=== PATIENT | female | born 1975 | race American Indian/Alaskan Native ===

== ENCOUNTER 2019-01-06 19:52 | Emergency (ER) | payer OTHER ==
[2019-01-06] MEDS ORDERED: ASPIRIN 325 MG TAB PO ONE (20:00)
--- NOTE | 2019-01-06 20:01 | Event Note ---
ED Screening Note Date of service: 01/06/19 Time: 19:58 ED Screening Note: 43 y o f presents with mid chest pain pressure type x today This initial assessment/diagnostic orders/clinical plan/treatment(s) is/are subject to change based on patients health status, clinical progression and re-assessment by fellow clinical providers in the ED. Further treatment and workup at subsequent clinical providers discretion. Patient/guardian urged not to elope from the ED as their condition may be serious if not clinically assessed and managed. Initial orders include: ekg cxr labs
[2019-01-06 20:03] VITALS: BP 163/109
[2019-01-06 20:32] LABS: Basophils # (Auto) 0.1 K/mm3 (0.0-0.1); Basophils % (Auto) 0.6 % (0.0-1.8); Eosinophils # (Auto) 0.2 K/mm3 (0.0-0.4); Eosinophils % (Auto) 2.7 % (0.0-4.3); Hematocrit 45.6 % (30.3-42.9); Hemoglobin 15.4 gm/dl (10.1-14.3); Lymphocytes # (Auto) 2.2 K/mm3 (1.2-5.4); Mean Corpuscular HGB Conc 34 % (30-34); Mean Corpuscular Volume 87 fl (79-97); Monocytes # (Auto) 0.7 K/mm3 (0.0-0.8); Monocytes % (Auto) 7.5 % (0.0-7.3); Platelet Count 250 K/mm3 (140-440); Red Blood Count 5.25 M/mm3 (3.65-5.03); Red Cell Distribution Width 14.4 % (13.2-15.2)
[2019-01-06 20:52] LABS: BUN/Creatinine Ratio 10; Blood Urea Nitrogen 8 mg/dL (7-17); Calcium 9.4 mg/dL (8.4-10.2); Hemolysis Index 17
--- NOTE | 2019-01-06 21:15 | XRay Report ---
CHEST 2 VIEWS 2024 INDICATION / CLINICAL INFORMATION: Chest Pain COMPARISON: None available. FINDINGS: SUPPORT DEVICES: None. HEART / MEDIASTINUM: No significant abnormality. LUNGS / PLEURA: No significant pulmonary or pleural abnormality. No pneumothorax. ADDITIONAL FINDINGS: No significant additional findings. IMPRESSION: No significant acute abnormality Signer Name: Darnell Banegas MD Signed: 01/06/2019 9:10 PM Workstation Name: [id number]
[2019-01-06] MEDS ORDERED: ONDANSETRON 4 MG/2 ML INJ IV ONE (23:09)
[2019-01-06] MEDS ORDERED: MORPHINE 4 MG/1 ML INJ IV ONE (23:09)
[2019-01-06] MEDS ORDERED: dexAMETHasone 20 MG/5 ML VIAL IV ONE (23:09)
--- NOTE | 2019-01-07 00:46 | Emergency Department Report ---
ED Chest Pain HPI - General Chief Complaint: Chest Pain Stated Complaint: CHEST & RIGHT ARM PAIN Time Seen by Provider: 01/06/19 19:57 Source: patient Mode of arrival: Ambulatory Limitations: No Limitations - History of Present Illness Initial Comments: Patient is a 43-year-old Afro-[place] female with a history of hypertension who presents to the ED with common acute onset persistent diffuse right upper extremity pain with numbness and tingling sensation for the last 2 weeks, worse in the last 2 days and right-sided chest wall pain for the last 8 hours. Patient states that the pain in the chest has been constant and worse with any movement or lifting. Patient denies diaphoresis, nausea, vomiting, shortness of breath, abdominal pain, dizziness, headache, neck pain, sore throat, diarrhea, fever, chills, cough, follow traumatic injury and heavy lifting. MD Complaint: chest pain, other -: Sudden, week(s) (2) Onset: during rest, awoke with symptoms Pain Location: substernal, right chest Pain Radiation: RUE Severity: moderate Severity scale (0 -10): 4 Quality: tightness, aching, sharp Consistency: constant Improves With: nothing Worsens With: exertion, palpation, movement re: denies: nausea, vomting, diaphoresis, dyspnea, sense of impending doom Other Symptoms: denies: cough, fever, syncope, rash, acid taste in mouth, leg swelling, palpitations, burping, other Treatments Prior to Arrival: aspirin Aspirin use within the Past 7 Days: (0) No - Related Data On Oral Contraceptives: No Previous Rx's Medication Instructions Recorded Last Taken Type Ferrous Sulfate [Feosol 325mg] 325 mg PO BID #60 tablet 07/03/13 Unknown Rx Lisinopril [Zestril TAB] 10 mg PO QDAY #20 tablet 07/03/13 Unknown Rx Cyclobenzaprine [Flexeril] 10 mg PO Q8H PRN #15 tablet 01/07/19 Unknown Rx Gabapentin [Neurontin] 300 mg PO Q12H PRN #24 cap 01/07/19 Unknown Rx Naproxen 500 mg PO Q12H PRN #20 tablet 01/07/19 Unknown Rx Allergies Allergy/AdvReac Type Severity Reaction Status Date / Time No Known Allergies Allergy Unverified 07/03/13 15:51 Heart Score - HEART Score History: Slightly suspicious EKG: Normal Age: < 45 Risk factors: 1-2 risk factors Troponin: < normal limit HEART Score: 1 - Critical Actions Critical Actions: 0-3 pts:0.9-1.7%risk of adverse cardiac event.Candidate for discharge ED Review of Systems ROS: Stated complaint: CHEST & RIGHT ARM PAIN Other details as noted in HPI Constitutional: denies: chills, fever Eyes: denies: eye pain, eye discharge, vision change ENT: denies: ear pain, throat pain Respiratory: denies: cough, shortness of breath, wheezing Cardiovascular: chest pain. denies: palpitations Endocrine: no symptoms reported Gastrointestinal: denies: abdominal pain, nausea, diarrhea Genitourinary: denies: urgency, dysuria, discharge Musculoskeletal: arthralgia (Right arm pain; neck pain). denies: back pain, joint swelling Skin: denies: rash, lesions Neurological: denies: headache, weakness, paresthesias Psychiatric: denies: anxiety, depression Hematological/Lymphatic: denies: easy bleeding, easy bruising ED Past Medical Hx - Past Medical History Previous Medical History?: Yes Hx Hypertension: Yes Additional medical history: Anemia - Surgical History Additional Surgical History: Myomectomy, 2 C-sections, Hysterectomy - Social History Smoking Status: Never Smoker Substance Use Type: None - Medications Home Medications: Home Medications Medication Instructions Recorded Confirmed Last Taken Type Ferrous Sulfate [Feosol 325mg] 325 mg PO BID #60 tablet 07/03/13 Unknown Rx Lisinopril [Zestril TAB] 10 mg PO QDAY #20 tablet 07/03/13 Unknown Rx Cyclobenzaprine [Flexeril] 10 mg PO Q8H PRN #15 tablet 01/07/19 Unknown Rx Gabapentin [Neurontin] 300 mg PO Q12H PRN #24 cap 01/07/19 Unknown Rx Naproxen 500 mg PO Q12H PRN #20 tablet 01/07/19 Unknown Rx ED Physical Exam - General Limitations: No Limitations General appearance: alert, in no apparent distress - Head Head exam: Present: atraumatic, normocephalic, normal inspection - Eye Eye exam: Present: normal appearance, PERRL, EOMI Pupils: Present: normal accommodation - ENT ENT exam: Present: normal exam, normal orophraynx, mucous membranes moist, TM's normal bilaterally, normal external ear exam - Neck Neck exam: Present: normal inspection, full ROM - Respiratory Respiratory exam: Present: normal lung sounds bilaterally, chest wall tenderness. Absent: respiratory distress, wheezes, rales, rhonchi, accessory muscle use, prolonged expiratory - Cardiovascular Cardiovascular Exam: Present: regular rate, normal rhythm, normal heart sounds. Absent: systolic murmur, diastolic murmur, rubs, gallop - GI/Abdominal GI/Abdominal exam: Present: soft, normal bowel sounds. Absent: tenderness, g uarding, rebound, hyperactive bowel sounds, hypoactive bowel sounds - Extremities Exam Extremities exam: Present: normal inspection, full ROM, normal capillary refill - Back Exam Back exam: Present: normal inspection, full ROM. Absent: tenderness, CVA tenderness (L), muscle spasm, paraspinal tenderness, vertebral tenderness - Neurological Exam Neurological exam: Present: alert, oriented X3, CN II-XII intact, normal gait, reflexes normal - Psychiatric Psychiatric exam: Present: normal affect, normal mood - Skin Skin exam: Present: warm, dry, intact, normal color. Absent: rash ED Course Vital Signs 01/06/19 20:02 Temperature 97.9 F Pulse Rate 95 H Respiratory 18 Rate Blood Pressure 163/109 [Right] O2 Sat by Pulse 100 Oximetry - Reevaluation(s) Reevaluation #1: 01/07/19 04:49 This is a 43-year-old -Faro[place] female with a history of hypertension who presented to the ED with right arm and right-sided chest pain. In the ED, patient is alert and oriented 3 and is not in distress but hypertensive in triage, and appears to be in pain. Lab test results were reviewed and are all nonactionable including initial and repeat troponin levels. Chest x-ray shows no acute cardio pulmonary abnormalities. EKG shows sinus rhythm with a ventricular rate of 59 bpm, and no ST or T-wave abnormalities or pathological Q waves. Patient was treated for pain in the ED with morphine and Decadron. Based on the physical exam findings, and the patient had Heart Score being 1 for hypertension, PERC negative and HARRIET of 0, the patient's symptoms of the right upper extremity numbness and tingling this likely due to cervical radiculopathy with chest wall muscle strain a muscle spasm. The patient's symptoms are not likely due to acute coronary syndrome. Patient was discharged home on pain medications and muscle relaxants and advised to follow-up with her primary care physician in 5-7 days for reevaluation or return to the ED immediately if symptoms get worse. HARRIET score - Harriet Score Age > 65: (0) No Aspirin use within the Past 7 Days: (0) No 3 or more CAD Risk Factors: (0) No 2 or more Angina events in past 24 hrs: (0) No Known CAD with more than 50% Stenosis: (0) No Elevated Cardiac Markers: (0) No ST Deviation Greater than 0.5mm: (0) No HARRIET Score: 0 ED Medical Decision Making - Lab Data Result diagrams: 01/06/19 20:12 01/06/19 20:12 - EKG Data Rate: normal - EKG Data 01/07/19 04:54 Normal sinus rhythm, ventricular rate of 89 this minute, no ST or T-wave abnormalities. - Radiology Data Radiology results: report reviewed, image reviewed Chest x-ray shows no acute cardiopulmonary abnormalities. - Medical Decision Making This is a 43-year-old -[place] female with a history of hypertension who presented to the ED with right arm and right-sided chest pain. In the ED, patient is alert and oriented 3 and is not in distress but hypertensive in triage, and appears to be in pain. Lab test results were reviewed and are all nonactionable including initial and repeat troponin levels. Chest x-ray shows no acute cardio pulmonary abnormalities. EKG shows sinus rhythm with a ventricular rate of 59 bpm, and no ST or T-wave abnormalities or pathological Q waves. Patient was treated for pain in the ED with morphine and Decadron. Based on the physical exam findings, and the patient had Heart Score being 1 for hypertension, PERC negative and HARRIET of 0, the patient's symptoms of the right upper extremity numbness and tingling this likely due to cervical radiculopathy with chest wall muscle strain a muscle spasm. The patient's symptoms are not likely due to acute coronary syndrome. Patient was discharged home on pain medications and muscle relaxants and advised to follow-up with her primary care physician in 5-7 days for reevaluation or return to the ED immediately if symptoms get worse. - Differential Diagnosis ACS; Cervical radiculopathy; Muscle strain of chest; muscle strain of arm Critical care attestation.: If time is entered above; I have spent that time in minutes in the direct care of this critically ill patient, excluding procedure time. ED Disposition Clinical Impression: Nonspecific chest pain, Cervical paraspinal muscle spasm, Cervical radiculopathy, Pain of right upper extremity Disposition: TO HOME OR SELFCARE Is pt being admited?: No Does the pt Need Aspirin: No Condition: Stable Instructions: Chest Pain (ED), Muscle Strain (ED), Cervical Radiculopathy (ED), Musculoskeletal Pain (ED) Additional Instructions: Take medications with food, drink plenty of fluids and follow-up with your primary care physician in 5-7 days for reevaluation. Return to the ED immediately if symptoms get worse. Prescriptions: Cyclobenzaprine [Flexeril] 10 mg PO Q8H PRN #15 tablet PRN Reason: Muscle Spasm Naproxen 500 mg PO Q12H PRN #20 tablet PRN Reason: Pain , Severe (7-10) Gabapentin [Neurontin] 300 mg PO Q12H PRN #24 cap PRN Reason: Pain , Severe (7-10) Referrals: PRIMARY CARE, [Primary Care Provider] - 3-5 Days Forms: Accompanied Note Time of Disposition: 00:52 Print Language: [id number]
== END 2019-01-07 01:16 | disposition home or self-care (01) ==
LOC: ED 19:52
DX: R07.89 Other chest pain (principal); M79.601 Pain in right arm; M54.12 Radiculopathy, cervical region; M62.838 Other muscle spasm; I10 Essential (primary) hypertension; D64.9 Anemia, unspecified; Z90.710 Acquired absence of both cervix and uterus; Z79.899 Other long term (current) drug therapy
CPT/HCPCS: 36415; 71046; 80048; 83880; 84484; 85025; 93005; 93010; 96374; 96375; 99284; J1100; J2270; J2405